=== PATIENT | female | born 1975 | race Caucasian/White ===

== ENCOUNTER 2019-01-10 20:29 | Emergency (ER) | payer BC, OTHER ==
[2019-01-10] MEDS ORDERED: Ketorolac INJ* 30 MG/ML 1 ML VIAL IV PUSH ONE (22:00)
[2019-01-10] MEDS ORDERED: Pantoprazole IV* 40 MG IV ONE (22:01)
[2019-01-10] MEDS ORDERED: Metoclopramide IV* 5 MG/ML 2 ML VIAL IV SLOW PU ONE (22:02)
[2019-01-10] MEDS ORDERED: NS 0.9% 1000 ML** 1,000 ML IV ONE (22:02)
[2019-01-10 22:26] LABS: ABS Eosinophils 0.1 10^3/ul (0-0.6); ABS Lymphocytes 1.7 10^3/ul (1.0-4.8); ABS Monocytes 0.5 10^3/ul (0-0.8); ABS Neutrophils 4.7 10^3/ul (1.5-7.7); Eosinophil % 1.5 %; Hematocrit 44 % (35-47); Hemoglobin 15.2 g/dL (12.0-16.0); Lymphocyte % 23.8 %; Mean Corpuscular HGB Conc 35 g/dL (31-36); Mean Corpuscular Hemoglobin 34 pg (27-31); Mean Corpuscular Volume 98 fL (80-97); Mean Platelet Volume 7.5 fL (7.4-10.4); Platelet Count 334 10^3/uL (150-450); Red Blood Count 4.45 10^6 /uL (3.70-4.87); Red Cell Distribution Width 14 % (10.5-15); White Blood Count 6.9 10^3/uL (3.5-10.8)
[2019-01-10 22:43] LABS: Albumin 4.9 g/dL (3.2-5.2); Albumin/Globulin Ratio 1.4 (1-3); Alkaline Phosphatase 245 U/L (34-104); Amylase 21 U/L (29-103); BUN/Creatinine Ratio 13.7 (8-20); Blood Urea Nitrogen 10 mg/dL (6-24); C Reactive Protein 9.04 mg/L (<8.01); CO2 Carbon Dioxide 25 mmol/L (22-32); Calcium 9.8 mg/dL (8.6-10.3); Chloride 100 mmol/L (101-111); EGFR African American 104.3 (>60); EGFR Non-African American 86.2 (>60); Globulin 3.4 g/dL (2-4); Glucose 133 mg/dL (70-100); Sodium 135 mmol/L (135-145); Total Protein 8.3 g/dL (6.4-8.9)
[2019-01-10 22:49] LABS: HCG Pregnancy 0.87 mIU/mL
[2019-01-10 22:52] LABS: Magnesium 1.9 mg/dL (1.9-2.7)
[2019-01-10 22:53] LABS: Anion Gap 10 mmol/L (2-11)
--- NOTE | 2019-01-10 22:55 | ED ---
Abdominal Pain/Female - HPI Summary HPI Summary: Patient is a 43 y/o F presenting to ED with complaints of upper abdominal pain since 0500 this morning, 01/10/19. Patient reports this is the third episode of such pain that she has experienced this week. She notes that she had taken Pepto -Bismol previously with relief in Sx. Today, she took Pepto-Bismol once more but did not have any relief in pain. Pain has been constant since onset. She reports radiation of pain into back and shoulders. Intermittent nausea is also endorsed. Patient claims that she cannot take narcotics. PSHx is denied. Per triage note, "Pt started on Carafate this date, has taken one dose. DX with GERD 2002. Hiatal hernia per report. Pt with hx of ETOH abuse. Pt denies cardiac hx". On triage, pain is rated 7/10. Nothing is noted to aggravate/ alleviate Sx. home medications and allergies are reviewed. - History of Current Complaint Chief Complaint: EDAbdPain Stated Complaint: ABD PAIN PER PT Time Seen by Provider: 01/10/19 21:45 Hx Obtained From: Patient Onset/Duration: Lasting Hours - onset 0500 this morning, Still Present Timing: Constant - onset 0500 this morning Severity Initially: Severe - 7/10 Severity Currently: Severe - 7/10 Pain Intensity: 7 Pain Scale Used: 0-10 Numeric - 7/10 Location: Other - upper Radiates: Yes Radiates to: Back, Other - shoulders Allergies/Adverse Reactions: Allergies Allergy/AdvReac Type Severity Reaction Status Date / Time amoxicillin [From Augmentin] Allergy Hives Verified 01/10/19 20:44 clavulanic acid Allergy Hives Verified 01/10/19 20:44 [From Augmentin] sulfamethoxazole Allergy Anaphylatic Verified 01/10/19 20:44 [From Bactrim] Shock trimethoprim [From Bactrim] Allergy Anaphylatic Verified 01/10/19 20:44 Shock Home Medications: Home Medications Acamprosate (NF) [Campral (NF)] 666 mg PO TID 01/11/19 [History Confirmed ] Escitalopram Oxalate [Lexapro] 20 mg PO DAILY 01/11/19 [History Confirmed ] Gabapentin CAP(*) 800 mg PO TID 01/11/19 [History Confirmed 01/11/19] Lamictal 150 mg PO DAILY 01/11/19 [History Confirmed 01/11/19] Pantoprazole Sodium [Protonix] 20 mg PO DAILY 01/11/19 [History Confirmed ] Sucralfate [Carafate] 1 gm PO BID 01/11/19 [History Confirmed 01/11/19] Trazodone HCl 100 mg PO BEDTIME 01/11/19 [History Confirmed 01/11/19] hydrOXYzine pamoate [Vistaril] 50 mg PO TID 01/11/19 [History Confirmed 01/11/19 ] PMH/Surg Hx/FS Hx/Imm Hx GI History: Reports: Hx Gastroesophageal Reflux Disease, Hx Hiatal Hernia Sensory History: Denies: Hx Legally Blind, Hx Deafness Opthamlomology History: Denies: Hx Legally Blind EENT History: Denies: Hx Deafness Psychiatric History: Reports: Hx Substance Abuse - alcohol abuse - Surgical History Surgery Procedure, Year, and Place: 01/10/19 - patient reports no PSHx Infectious Disease History: No Infectious Disease History: Denies: Traveled Outside the [place] in Last 30 Days - Family History Known Family History: Positive: Other - no FMHx of GERD Negative: Hypertension, Diabetes - Social History Alcohol Use: Daily Alcohol Amount: patient has been in rehab for a week Substance Use Type: Reports: None Smoking Status (MU): Former Smoker Review of Systems Negative: Fever - on vitals, temp is 98.8 F Positive: Abdominal Pain - upper , Nausea All Other Systems Reviewed And Are Negative: Yes Physical Exam - Summary Physical Exam Summary: VITAL SIGNS: Reviewed. GENERAL: Patient is a well-developed and nourished female who is lying comfortable in the stretcher. Patient is not in any acute respiratory distress. HEAD AND FACE: No signs of trauma. No ecchymosis, hematomas or skull depressions. No sinus tenderness. EYES: PERRLA, EOMI x 2, No injected conjunctiva, no nystagmus. EARS: Hearing grossly intact. Ear canals and tympanic membranes are within normal limits. MOUTH: Oropharynx within normal limits. NECK: Supple, trachea is midline, no adenopathy, no JVD, no carotid bruit, no c- spine tenderness, neck with full ROM CHEST: Symmetric, no tenderness at palpation LUNGS: Clear to auscultation bilaterally. No wheezing or crackles. CVS: Regular rate and rhythm, S1 and S2 present, no murmurs or gallops appreciated. ABDOMEN: Soft, RUQ tenderness is noted. No signs of distention. No rebound no guarding, and no masses palpated. Bowel sounds are normal. EXTREMITIES: FROM in all major joints, no edema, no cyanosis or clubbing. NEURO: Alert and oriented x 3. No acute neurological deficits. Speech is normal and follows commands. SKIN: Dry and warm Triage Information Reviewed: Yes Vital Signs On Initial Exam: Initial Vitals Temp Pulse Resp BP Pulse Ox 98.8 F 63 16 148/91 96 01/10/19 20:35 01/10/19 20:35 01/10/19 20:35 01/10/19 20:35 01/10/19 20:35 Vital Signs Reviewed: Yes Diagnostics - Vital Signs Vital Signs Temp Pulse Resp BP Pulse Ox 01/10/19 20:35 98.8 F 63 16 148/91 96 - Laboratory Lab Results: Lab Results 01/10/19 01/10/19 Range/Units 22:19 22:19 WBC 6.9 (3.5-10.8) 10^3/uL RBC 4.45 (3.70-4.87) 10^6 /uL Hgb 15.2 (12.0-16.0) g/dL Hct 44 (35-47) % MCV 98 H (80-97) fL MCH 34 H (27-31) pg MCHC 35 (31-36) g/dL RDW 14 (10.5-15) % Plt Count 334 (150-450) 10^3/uL MPV 7.5 (7.4-10.4) fL Neut % (Auto) 67.8 % Lymph % (Auto) 23.8 % [place] % (Auto) 6.7 % Eos % (Auto) 1.5 % Baso % (Auto) 0.2 % Absolute Neuts (auto) 4.7 (1.5-7.7) 10^3/ul Absolute Lymphs (auto) 1.7 (1.0-4.8) 10^3/ul Absolute Monos (auto) 0.5 (0-0.8) 10^3/ul Absolute Eos (auto) 0.1 (0-0.6) 10^3/ul Absolute Basos (auto) 0.0 (0-0.2) 10^3/ul Absolute Nucleated RBC 0.0 10^3/ul Nucleated RBC % 0.0 Sodium 135 (135-145) mmol/L Potassium Pending Chloride 100 L (101-111) mmol/L Carbon Dioxide 25 (22-32) mmol/L Anion Gap Pending BUN 10 (6-24) mg/dL Creatinine 0.73 (0.51-0.95) mg/dL Est GFR ( Amer) 104.3 (>60) Est GFR (Non-Af Amer) 86.2 (>60) BUN/Creatinine Ratio 13.7 (8-20) Glucose 133 H (70-100) mg/dL Calcium 9.8 (8.6-10.3) mg/dL Magnesium Pending Total Bilirubin 2.50 H D (0.2-1.0) mg/dL AST Pending ALT Pending Alkaline Phosphatase 245 H (34-104) U/L C-Reactive Protein 9.04 H (<8.01) mg/L Total Protein 8.3 (6.4-8.9) g/dL Albumin 4.9 (3.2-5.2) g/dL Globulin 3.4 (2-4) g/dL Albumin/Globulin Ratio 1.4 (1-3) Amylase 21 L (29-103) U/L Lipase 10 L (11.0-82.0) U/L Beta HCG, Quant Pending Result Diagrams: 01/10/19 22:19 01/10/19 22:19 Lab Statement: Any lab studies that have been ordered have been reviewed, and results considered in the medical decision making process. - Ultrasound No standard instances Ultrasound Interpretation Completed By: Radiologist Summary of Ultrasound Findings: GALLBLADDER US IMPRESSION: Distended gallbladder measuring 10.5 cm with multiple gallstones; largest one. is measuring 0.7 cm in the fundus of the gallbladder. Gallbladder debris. Gallbladder wall is thickened measuring 7.7 mm. Positive sonographic Monterroso's. sign. Findings represent acute cholecystitis. THIS REPORT WAS REVIEWED BY DR. LAM. - EKG 2056 Cardiac Rate: Bradycardia - rate of 52 BPM EKG Rhythm: Sinus Bradycardia Summary of EKG Findings: EKG showed sinus bradycardia with rate of 52 BPM, normal axis, normal interval, no ischemic changes. Re-Evaluation - Re-Evaluation First Eval Re-Evaluation Time: 00:03 Change: Improved Comment: After ED course, patient reports improvement of Sx. Results of labs and tests were discussed with patient. Surgery to be contacted. Second Eval Re-Evaluation Time: 00:20 Change: Unchanged Comment: Consults were discussed with the patient, the patient asks that she be transferred to [facility]. Transfer center to be contacted at this time. Third Eval Re-Evaluation Time: 00:36 Change: Unchanged Comment: Preliminary report given to transfer center. Abdominal Pain Fem Course/Dx - Course Course Of Treatment: Patient is a 43 y/o F presenting to ED with complaints of upper abdominal pain since 0500 this morning. Patient reports this is the third episode of such pain that she has experienced this week. She notes that she had taken Pepto-Bismol previously with relief in Sx. Today, she took Pepto-Bismol once more but did not have any relief in pain. Pain has been constant since onset. She reports radiation of pain into back and shoulders. Intermittent nausea is also endorsed. Patient claims that she cannot take narcotics. PSHx is denied. Per triage note, "Pt started on Carafate this date, has taken one dose. DX with GERD 2002. Hiatal hernia per report. Pt with hx of ETOH abuse. Pt denies cardiac hx". On physical exam, RUQ tenderness is noted. During ED course, patient was given fluids, protonix 40 mg IV ED ONCE ONE, relgan 10 mg IV SLOW PU ONCE ONE, and Toradol 15 mg IV PUSH ED ONCE ONE. Labs showed MCV 98 , MCH 34, chloride 100, glucose 133, total bilirubin 2.5, ALT 1112, alk phos 245 , CRP 9.04, amylase 21, lipase 10, Beta HCG <0.87. EKG showed sinus bradycardia with rate of 52 BPM, normal axis, normal interval, no ischemic changes. GALLBLADDER US IMPRESSION: Distended gallbladder measuring 10.5 cm with multiple gallstones; largest one. is measuring 0.7 cm in the fundus of the gallbladder. Gallbladder debris. Gallbladder wall is thickened measuring 7.7 mm. Positive sonographic Monterroso's. sign. Findings represent acute cholecystitis. After ED course, patient reports improvement of Sx. Results of labs and tests were discussed with patient. Surgery to be contacted. Patient's case was discussed with Dr. Mckeon, he asks for admission and ERCP for the patient. 0014 - Patient's case was discussed with Dr. Bal, Dr. Bal recommends GI consult before patient is admitted. 0017 - Patient's case was discussed with Dr. Au, there is not ERCP available. Therefore, the patient will be transferred. Patient requests transfer for [facility]. Patient to be given flagyl 500 mg in 100 mls @ 100 mls/hr IVPB ONCE ONE and Levaquin 500 mg IVpremix 500 mg in 100 mls @ 100 mls/hr IVPB ED ONCE ONE. 0048 - Patient's case was discussed with Dr. Sanders, Dr. Sanders, hospitalist, accepts patient, patient to be transferred to medical floor at [facility]. - Diagnoses Provider Diagnoses: Acute cholecystitis, Choledocholithiasis - Provider Notifications Discussed Care Of Patient With: Keaton Mckeon Time Discussed With Above Provider: 00:06 Instructed by Provider To: Other - Patient's case was discussed with Dr. Mckeon , he asks for admission and ERCP for the patient. 0014 - Patient's case was discussed with Dr. Bal, Dr. Bal recommends GI consult before patient is admitted. 0017 - Patient's case was discussed with Dr. Au, there is not ERCP available. Therefore, the patient will be transferred. 0048 - Patient's case was discussed with Dr. Sanders, Dr. Sanders, hospitalist, accepts patient, patient to be transferred to medical floor at [facility]. Discharge - Sign-Out/Discharge Documenting (check all that apply): Patient Departure - transfer Patient Received Moderate/Deep Sedation with Procedure: No - Discharge Plan Condition: Good Disposition: TRANS HIGHER LVL OF CARE FAC Referrals: Shruti Brown MD [Primary Care Provider] - - Billing Disposition and Condition Condition: GOOD Disposition: Trans Higher Lvl of Care Fac - Attestation Statements Document Initiated by Scribe: Yes Documenting Scribe: KENAN VILLALTA Provider For Whom Scribe is Documenting (Include Credential): SABAS LAM MD Scribe Attestation: KENAN Joyce, scribed for SABAS LAM MD on 01/11/19 at 0125. Scribe Documentation Reviewed: Yes Provider Attestation: The documentation as recorded by the scribe, KENAN VILLALTA accurately reflects the service I personally performed and the decisions made by me, SABAS LAM MD Status of Scribe Document: Viewed
[2019-01-10 23:11] LABS: ALT 1112 U/L (7-52)
[2019-01-11 00:08] LABS: INR 1.04 (0.82-1.09)
[2019-01-11] MEDS ORDERED: metroNIDAZOLE IV 500 MG/100ML* 500 MG/100 ML BAG IVPB ONE (00:26)
[2019-01-11] MEDS ORDERED: Levofloxacin 500 MG IVPREMIX(* 500 MG/100 ML BAG IVPB ONE (00:26)
[2019-01-11] MEDS ORDERED: NS 0.9% 1000 ML** 1,000 ML IV SCH (01:00)
[2019-01-11] MEDS ORDERED: Ketorolac INJ* 30 MG/ML 1 ML VIAL IV PUSH ONE (01:07)
[2019-01-11 02:09] VITALS: BP 138/81
== END 2019-01-11 02:07 | disposition short-term general hospital (02) ==
LOC: ED 20:29
DX: K80.42 Calculus of bile duct with acute cholecystitis without obstruction (principal); K21.9 Gastro-esophageal reflux disease without esophagitis; K44.9 Diaphragmatic hernia without obstruction or gangrene; Z88.3 Allergy status to other anti-infective agents; Z88.2 Allergy status to sulfonamides; Z87.891 Personal history of nicotine dependence; Z79.899 Other long term (current) drug therapy
CPT/HCPCS: 36415; 76705; 80053; 82150; 83690; 83735; 84702; 85025; 85610; 85730; 86140; 93005; 96361; 96365; 96375; 99284; J1885; J1956; J2765; J3490

== ENCOUNTER 2019-01-23 16:44 | Emergency (ER) | payer OTHER ==
[2019-01-23 21:33] LABS: ALT 49 U/L (7-52); Albumin/Globulin Ratio 1.5 (1-3); Alkaline Phosphatase 95 U/L (34-104); BUN/Creatinine Ratio 9.6 (8-20); Blood Urea Nitrogen 9 mg/dL (6-24); CO2 Carbon Dioxide 28 mmol/L (22-32); Calcium 10.8 mg/dL (8.6-10.3); Chloride 103 mmol/L (101-111); EGFR African American 77.9 (>60); EGFR Non-African American 64.4 (>60); Globulin 3.3 g/dL (2-4); Glucose 93 mg/dL (70-100); Hematocrit 43 % (35-47); Hemoglobin 14.7 g/dL (12.0-16.0); Mean Corpuscular HGB Conc 34 g/dL (31-36); Mean Corpuscular Hemoglobin 34 pg (27-31); Mean Corpuscular Volume 99 fL (80-97); Red Cell Distribution Width 14 % (10.5-15); Sodium 139 mmol/L (135-145); Total Protein 8.3 g/dL (6.4-8.9); White Blood Count 8.4 10^3/uL (3.5-10.8)
[2019-01-23 21:34] LABS: Anion Gap 8 mmol/L (2-11)
[2019-01-23 21:48] LABS: ABS Eosinophils 0.4 10^3/ul (0-0.6); ABS Lymphocytes 4.3 10^3/ul (1.0-4.8); ABS Monocytes 0.5 10^3/ul (0-0.8); ABS Neutrophils 3.2 10^3/ul (1.5-7.7); Eosinophil % 4.8 %; Lymphocyte % 50.7 %; Mean Platelet Volume 7.7 fL (7.4-10.4); Nucleated Red Blood Cells % 0.2; Platelet Count 447 10^3/uL (150-450)
[2019-01-23 21:48] LABS: Urine Appearance Clear; Urine Bilirubin Negative (Negative); Urine Blood Negative (Negative); Urine Color Yellow; Urine Glucose Negative (Negative); Urine Ketones Negative (Negative); Urine Nitrite Negative (Negative); Urine Protein Negative (Negative); Urine Specific Gravity 1.011 (1.010-1.030); Urine Urobilinogen Negative (Negative)
[2019-01-23 22:48] VITALS: BP 116/79
[2019-01-23] MEDS ORDERED: Ibuprofen TAB* 600 MG PO ONE (23:02)
--- NOTE | 2019-01-24 04:11 | ED ---
Abdominal Pain/Female - HPI Summary HPI Summary: Patient is a 43 y/o F presenting to ED with complaints of abdominal pain, N/V. She notes that she had a cholecystectomy last week. Patient states that she was discharged the day after her surgery and had been doing well. This morning, patient had sudden onset of nausea, vomiting, and then began to experienced abdominal pain. Abdominal pain has been constant since onset and is described as sharp. She denies any nausea since vomiting. Fatigue and decreased appetite are endorsed as well. Patient took motrin at 0800 01/23/19. Patient is currently in [facility] for alcohol rehab, cholecystectomy was done at [facility]. On triage, pain is rated 10/10, nothing is noted to aggravate/alleviate Sx. Home medications and allergies are reviewed. - History of Current Complaint Chief Complaint: EDAbdPain Stated Complaint: GALLBLADDER OUT 1WEEK AGO, PAIN PER PT Time Seen by Provider: 01/23/19 21:35 Hx Obtained From: Patient Onset/Duration: Lasting Hours, Still Present Timing: Hours Severity Currently: Severe Pain Intensity: 10 Pain Scale Used: 0-10 Numeric Character: Sharp Aggravating Factor(s): Nothing Alleviating Factor(s): Nothing Associated Signs and Symptoms: Positive: Decreased Appetite, Nausea, Vomiting, Other: - fatigue Allergies/Adverse Reactions: Allergies Allergy/AdvReac Type Severity Reaction Status Date / Time amoxicillin [From Augmentin] Allergy Hives Verified 01/23/19 16:55 clavulanic acid Allergy Hives Verified 01/23/19 16:55 [From Augmentin] sulfamethoxazole Allergy Anaphylatic Verified 01/23/19 16:55 [From Bactrim] Shock trimethoprim [From Bactrim] Allergy Anaphylatic Verified 01/23/19 16:55 Shock Home Medications: Home Medications ARIPiprazole [Abilify] 5 mg PO DAILY 01/23/19 [History Confirmed 01/23/19] Bifidobacterium Infantis [Align] 4 mg PO DAILY 01/23/19 [History Confirmed 01/23] Folic Acid TAB* [Folvite TAB*] 1 mg PO DAILY 01/23/19 [History Confirmed ] Multivitamin [Multivitamins] 1 tab PO DAILY 01/23/19 [History Confirmed 01/23/19 ] Nicotine [Nicotine Patch] 1 patch TRANSDERM DAILY 01/23/19 [History Confirmed ] Omeprazole 40 mg PO DAILY 01/23/19 [History Confirmed 01/23/19] Thiamine TAB* [Vitamin B-1 TAB 100 MG*] 100 mg PO DAILY 01/23/19 [History Confirmed 01/23/19] lamoTRIgine [Lamotrigine] 150 mg PO DAILY 01/23/19 [History Confirmed 01/23/19] PMH/Surg Hx/FS Hx/Imm Hx GI History: Reports: Hx Gastroesophageal Reflux Disease, Hx Hiatal Hernia Sensory History: Denies: Hx Legally Blind, Hx Deafness Opthamlomology History: Denies: Hx Legally Blind EENT History: Denies: Hx Deafness Psychiatric History: Reports: Hx Substance Abuse - alcohol abuse - Surgical History Surgery Procedure, Year, and Place: cholecystectomy Infectious Disease History: No Infectious Disease History: Denies: Traveled Outside the [place] in Last 30 Days - Family History Known Family History: Positive: Other - no FMHx of GERD Negative: Hypertension, Diabetes - Social History Alcohol Use: rehab Alcohol Amount: As of today pt has been clean for 49 days Substance Use Type: Reports: None Smoking Status (MU): Former Smoker Review of Systems Positive: Fatigue Gastrointestinal: Other - POSITIVE - DECREASED APPETITE Positive: Abdominal Pain, Vomiting, Nausea All Other Systems Reviewed And Are Negative: Yes Physical Exam - Summary Physical Exam Summary: Appearance: Well-appearing, Well-nourished, lying in bed comfortably Skin: Warm, dry, no obvious rash Eyes: sclera anicteric, no conjunctival pallor ENT: mucous membranes moist, pharynx appears normal Neck: Supple, nontender Respiratory: Clear to auscultation, no signs of respiratory distress Cardiovascular: Normal S1, S2. No murmurs. Normal distal pulses in tibial and radial bilaterally. Abdomen: Soft, RUQ tenderness with no peritoneal signs surgical scars healing well, normal active bowel sounds present Musculoskeletal: Normal, Strength/ROM Intact Neurological: A&Ox3, awake and alert, mentation is normal, speech is fluent and appropriate Psychiatric: affect is normal, does not appear anxious or depressed Triage Information Reviewed: Yes Vital Signs On Initial Exam: Initial Vitals Temp Pulse Resp BP Pulse Ox 98.4 F 80 19 141/91 99 01/23/19 16:52 01/23/19 16:52 01/23/19 16:52 01/23/19 16:52 01/23/19 16:52 Vital Signs Reviewed: Yes Diagnostics - Vital Signs Vital Signs Temp Pulse Resp BP Pulse Ox 01/23/19 23:10 97.8 F 64 18 116/79 95 01/23/19 22:38 64 116/79 94 01/23/19 22:08 62 122/80 95 01/23/19 22:00 68 95 01/23/19 21:39 66 145/81 98 01/23/19 21:37 69 97 01/23/19 18:55 98.4 F 79 20 147/81 98 01/23/19 16:52 98.4 F 80 19 141/91 99 - Laboratory Lab Results: Lab Results 01/23/19 01/23/19 01/23/19 Range/Units 21:06 21:06 21:06 WBC 8.4 (3.5-10.8) 10^3/uL RBC 4.30 (3.70-4.87) 10^6 /uL Hgb 14.7 (12.0-16.0) g/dL Hct 43 (35-47) % MCV 99 H (80-97) fL MCH 34 H (27-31) pg MCHC 34 (31-36) g/dL RDW 14 (10.5-15) % Plt Count 447 (150-450) 10^3/uL MPV 7.7 (7.4-10.4) fL Neut % (Auto) 37.5 % Lymph % (Auto) 50.7 % [place] % (Auto) 6.5 % Eos % (Auto) 4.8 % Baso % (Auto) 0.5 % Absolute Neuts (auto) 3.2 (1.5-7.7) 10^3/ul Absolute Lymphs (auto) 4.3 (1.0-4.8) 10^3/ul Absolute Monos (auto) 0.5 (0-0.8) 10^3/ul Absolute Eos (auto) 0.4 (0-0.6) 10^3/ul Absolute Basos (auto) 0.0 (0-0.2) 10^3/ul Absolute Nucleated RBC 0.0 10^3/ul Nucleated RBC % 0.2 Sodium 139 (135-145) mmol/L Potassium TNP Chloride 103 (101-111) mmol/L Carbon Dioxide 28 (22-32) mmol/L Anion Gap 8 (2-11) mmol/L BUN 9 (6-24) mg/dL Creatinine 0.94 (0.51-0.95) mg/dL Est GFR ( Amer) 77.9 (>60) Est GFR (Non-Af Amer) 64.4 (>60) BUN/Creatinine Ratio 9.6 (8-20) Glucose 93 (70-100) mg/dL Lactic Acid 0.3 L (0.5-2.0) mmol/L Calcium 10.8 H (8.6-10.3) mg/dL Total Bilirubin 0.90 (0.2-1.0) mg/dL AST TNP ALT 49 (7-52) U/L Alkaline Phosphatase 95 (34-104) U/L Total Protein 8.3 (6.4-8.9) g/dL Albumin 5.0 (3.2-5.2) g/dL Globulin 3.3 (2-4) g/dL Albumin/Globulin Ratio 1.5 (1-3) Lipase 15 (11.0-82.0) U/L Urine Color Urine Appearance Urine pH (5-9) Ur Specific [place] (1.010-1.030) Urine Protein (Negative) Urine Ketones (Negative) Urine Blood (Negative) Urine Nitrate (Negative) Urine Bilirubin (Negative) Urine Urobilinogen (Negative) Ur Leukocyte Esterase (Negative) Urine Glucose (Negative) 01/23/19 Range/Units 21:39 WBC (3.5-10.8) 10^3/uL RBC (3.70-4.87) 10^6 /uL Hgb (12.0-16.0) g/dL Hct (35-47) % MCV (80-97) fL MCH (27-31) pg MCHC (31-36) g/dL RDW (10.5-15) % Plt Count (150-450) 10^3/uL MPV (7.4-10.4) fL Neut % (Auto) % Lymph % (Auto) % [place] % (Auto) % Eos % (Auto) % Baso % (Auto) % Absolute Neuts (auto) (1.5-7.7) 10^3/ul Absolute Lymphs (auto) (1.0-4.8) 10^3/ul Absolute Monos (auto) (0-0.8) 10^3/ul Absolute Eos (auto) (0-0.6) 10^3/ul Absolute Basos (auto) (0-0.2) 10^3/ul Absolute Nucleated RBC 10^3/ul Nucleated RBC % Sodium (135-145) mmol/L Potassium Chloride (101-111) mmol/L Carbon Dioxide (22-32) mmol/L Anion Gap (2-11) mmol/L BUN (6-24) mg/dL Creatinine (0.51-0.95) mg/dL Est GFR ( Amer) (>60) Est GFR (Non-Af Amer) (>60) BUN/Creatinine Ratio (8-20) Glucose (70-100) mg/dL Lactic Acid (0.5-2.0) mmol/L Calcium (8.6-10.3) mg/dL Total Bilirubin (0.2-1.0) mg/dL AST ALT (7-52) U/L Alkaline Phosphatase (34-104) U/L Total Protein (6.4-8.9) g/dL Albumin (3.2-5.2) g/dL Globulin (2-4) g/dL Albumin/Globulin Ratio (1-3) Lipase (11.0-82.0) U/L Urine Color Yellow Urine Appearance Clear Urine pH 5.0 (5-9) Ur Specific [place] 1.011 (1.010-1.030) Urine Protein Negative (Negative) Urine Ketones Negative (Negative) Urine Blood Negative (Negative) Urine Nitrate Negative (Negative) Urine Bilirubin Negative (Negative) Urine Urobilinogen Negative (Negative) Ur Leukocyte Esterase Negative (Negative) Urine Glucose Negative (Negative) Result Diagrams: 01/23/19 21:06 01/23/19 21:06 Lab Statement: Any lab studies that have been ordered have been reviewed, and results considered in the medical decision making process. - Ultrasound No standard instances Ultrasound Interpretation Completed By: Radiologist Summary of Ultrasound Findings: ABDOMEN US IMPRESSION: 1. There is a 6 mm calculus in the inferior pole the right kidney without. hydronephrosis. 2. There is absence of the gallbladder consistent with cholecystectomy with. minimal free fluid in the gallbladder fossa. THIS REPORT WAS REVIEWED BY DR. PAIZ. Re-Evaluation - Re-Evaluation First Eval Re-Evaluation Time: 22:38 Comment: Results of labs and tests discussed, patient is agreeable with discharge to home. Abdominal Pain Fem Course/Dx - Course Course Of Treatment: Patient is a 43 y/o F presenting to ED with complaints of abdominal pain, N/V. She notes that she had a cholecystectomy last week. Patient states that she was discharged the day after her surgery and had been doing well. This morning, patient had sudden onset of nausea, vomiting, and then began to experienced abdominal pain. Abdominal pain has been constant since onset and is described as sharp. She denies any nausea since vomiting. Fatigue and decreased appetite are endorsed as well. Patient took motrin at 0800 01/23/19. Patient is currently in [facility] for alcohol rehab, cholecystectomy was done at [facility]. On physical exam, RUQ tenderness with no peritoneal signs surgical scars healing well, normal active bowel sounds present. Labs showed lipase 15, ALT 49, alk phos 96, calcium 10.8, lactic acid 0.3. UA was negative. During ED course, patient received motrin 600 mg PO. ABDOMEN US IMPRESSION: 1. There is a 6 mm calculus in the inferior pole the right kidney without. hydronephrosis. 2. There is absence of the gallbladder consistent with cholecystectomy with. minimal free fluid in the gallbladder fossa. Results of labs and tests discussed, patient is agreeable with discharge to home. - Diagnoses Provider Diagnoses: Abdominal pain Discharge - Sign-Out/Discharge Documenting (check all that apply): Patient Departure - discharge Patient Received Moderate/Deep Sedation with Procedure: No - Discharge Plan Condition: Good Disposition: HOME Patient Education Materials: Acute Abdominal Pain (ED) Referrals: Shruti Brown MD [Primary Care Provider] - Additional Instructions: The tests we did tonight did not show any sign of a significant problem workup patient related to your surgery. At this point I believe it is safe for you to go home and rest and take Motrin for the pain. I would ask that you call your surgeon in the morning to let him know what is happening with you as he may want to see you sooner than later this month if you continue to have pain. Certainly if her pain worsens significant family or you develop new symptoms such as vomiting or fever, we can see you back here sooner as well. - Billing Disposition and Condition Condition: GOOD Disposition: Home - Attestation Statements Document Initiated by Rafa: Yes Documenting Scribe: KENAN VILLALTA Provider For Whom Rafa is Documenting (Include Credential): SARAI PAIZ MD Scribe Attestation: I, KENAN VILLALAT, scribed for SARAI PAIZ MD on 01/24/19 at 0421. Scribe Documentation Reviewed: Yes Provider Attestation: The documentation as recorded by the KENAN dhillon accurately reflects the service I personally performed and the decisions made by me, SARAI PAIZ MD Status of Scribe Document: Viewed
== END 2019-01-23 23:12 | disposition home or self-care (01) ==
LOC: ED 16:44
DX: R10.11 Right upper quadrant pain (principal); R11.2 Nausea with vomiting, unspecified; R53.83 Other fatigue; N20.0 Calculus of kidney; K21.9 Gastro-esophageal reflux disease without esophagitis; Z90.49 Acquired absence of other specified parts of digestive tract; Z88.1 Allergy status to other antibiotic agents; Z88.0 Allergy status to penicillin; Z88.2 Allergy status to sulfonamides; Z87.891 Personal history of nicotine dependence
CPT/HCPCS: 36415; 76705; 80053; 81003; 83605; 83690; 85025; 99283; A9270-GY

== ENCOUNTER 2019-03-02 13:15 | Observation (INO) | payer OTHER ==
--- NOTE | 2019-03-02 13:33 | ED ---
Syncope/Near Syncope - HPI Summary HPI Summary: This patient is a 43 year old female presenting to [facility] with a chief complaint of syncope since this past week. The patient states she has had 3 episodes over the past week with the latest one just [employer]. The patient states she feels completely fine, then passes out and wakes up and continues to feel completely fine. She states she currently has a headache. This time she states she was headed to toward the stairs when she fell. She states she does not believe she has hit her head and that two of her three falls were witnessed. The headache did not start until well after the latest episode. She states they are tension headaches. She also reports soreness in her right elbow and shoulder, she states she thinks she threw her arm out. - History Of Current Complaint Time Seen by Provider: 03/02/19 13:23 Hx Obtained From: Patient Context: Unwitnessed, Witnessed Alleviating Factor(s): Spontaneous Resolution Associated Signs And Symptoms: Headache - Allergies/Home Medications Allergies/Adverse Reactions: Allergies Allergy/AdvReac Type Severity Reaction Status Date / Time amoxicillin [From Augmentin] Allergy Hives Verified 01/23/19 16:55 clavulanic acid Allergy Hives Verified 01/23/19 16:55 [From Augmentin] sulfamethoxazole Allergy Anaphylatic Verified 01/23/19 16:55 [From Bactrim] Shock trimethoprim [From Bactrim] Allergy Anaphylatic Verified 01/23/19 16:55 Shock Home Medications: Home Medications Acetaminophen TAB* [Tylenol TAB*] 1 - 2 tab PO Q6H PRN 03/02/19 [History Confirmed 03/02/19] Aspirin TAB* [Aspirin 325 MG TAB*] 325 mg PO SEE INSTRUCTIONS PRN 03/02/19 [ History Confirmed 03/02/19] Bismuth Subsalicylate [[place] Bismuth] 2 tab PO Q30M PRN 03/02/19 [History Confirmed 03/02/19] Docusate CAP* [Colace Cap*] 100 mg PO BID PRN 03/02/19 [History Confirmed ] Gabapentin CAP(*) [Neurontin 100 mg CAP(*)] 100 mg PO TID PRN 03/02/19 [History Confirmed 03/02/19] Magnesium Hydroxide LIQ* [Milk of Magnesia LIQ*] 30 ml PO DAILY PRN 03/02/19 [ History Confirmed 03/02/19] Melatonin 10 mg PO BEDTIME PRN 03/02/19 [History Confirmed 03/02/19] Nicotine GUM* 4MG FRUIT FLAVOR [Nicotine GUM*] 4 each PO BID 03/02/19 [History Confirmed 03/02/19] Nicotine PATCH 14 MG/24 HR* 1 patch TRANSDERM DAILY 03/02/19 [History Confirmed 03/02/19] Polyethylene Glycol 3350* [Miralax*] 17 gm PO DAILY PRN 03/02/19 [History Confirmed 03/02/19] guaiFENesin ER TAB [Mucinex*] 1,200 mg PO Q12H PRN 03/02/19 [History Confirmed 03/02/19] hydrOXYzine HCL TAB* [Atarax TAB 50 MG *] 50 mg PO TID PRN 03/02/19 [History Confirmed 03/02/19] PMH/Surg Hx/FS Hx/Imm Hx GI History: Reports: Hx Gastroesophageal Reflux Disease, Hx Hiatal Hernia Sensory History: Denies: Hx Legally Blind, Hx Deafness Opthamlomology History: Denies: Hx Legally Blind Psychiatric History: Reports: Hx Substance Abuse - alcohol abuse - Surgical History Surgery Procedure, Year, and Place: cholecystectomy - Family History Known Family History: Positive: Other - no FMHx of GERD Negative: Hypertension, Diabetes - Social History Alcohol Use: rehab Alcohol Amount: As of today pt has been clean for 49 days Substance Use Type: Reports: None Smoking Status (MU): Former Smoker Review of Systems Negative: Fever Positive: Other - Rigth shoulder/elbow soreness Positive: Headache, Syncope All Other Systems Reviewed And Are Negative: Yes Physical Exam - Summary Physical Exam Summary: Appearance: The patient is well-nourished in no acute distress and in no acute pain. Skin: The skin is warm and dry and skin color reflects adequate perfusion. HEENT: The head is normocephalic and atraumatic. The pupils are equal and reactive. The conjunctivae are clear and without drainage. Nares are patent and without drainage. Mouth reveals moist mucous membranes and the throat is without erythema and exudate. The external ears are intact. The ear canals are patent and without drainage. The tympanic membranes are intact. Neck: The neck is supple with full range of motion and non-tender. There are no carotid bruits. There is no neck vein distension. Mild pericervical tenderness. Respiratory: Chest is non-tender. Lungs are clear to auscultation and breath sounds are symmetrical and equal. Cardiovascular: Heart is regular rate and rhythm. There is no murmur or rub auscultated. There is no peripheral edema and pulses are symmetrical and equal. Abdomen: The abdomen is soft and non-tender. There are normal bowel sounds heard in all four quadrants and there is no organomegaly palpated. Musculoskeletal: There is no back tenderness noted. Extremities are non-tender with full range of motion. There is good capillary refill. There is no peripheral edema or calf tenderness elicited. Neurological: Patient is alert and oriented to person, place and time. The patient has symmetrical motor strength in all four extremities. Cranial nerves are grossly intact. Deep tendon reflexes are symmetrical and equal in all four extremities. Psychiatric: The patient has an appropriate affect and does not exhibit any anxiety or depression. Triage Information Reviewed: Yes Vital Signs On Initial Exam: Temp Pulse Resp BP Pulse Ox 98.1 F 83 18 107/65 96 03/02/19 13:27 03/02/19 13:27 03/02/19 13:27 03/02/19 13:27 03/02/19 13:27 Vital Signs Reviewed: Yes Diagnostics - Laboratory Result Diagrams: 03/02/19 14:00 03/02/19 14:00 Lab Statement: Any lab studies that have been ordered have been reviewed, and results considered in the medical decision making process. - EKG 1350 Cardiac Rate: NL EKG Rhythm: Sinus Rhythm - 71 BPM Summary of EKG Findings: Normal sinus rhythm, normal ST, no ectopy, no STEMI Course/Dx Course Of Treatment: Ms. Greer has worrisomely had 3 episodes of sudden unexpected syncope without prequel over the last couple of days. She was nontoxic in appearance with stable vital signs here. She is placed on a monitor while labs were obtained including troponin. EKG and chest x-ray also obtained and within normal limits. I spoke with the hospitalist about observing her on the monitor given the 3 episodes. - Diagnoses Provider Diagnoses: Syncope - Physician Notifications Discussed Care of Patient With: Mehran Melendez - Hospitalist Time Discussed With Above Provider: 15:54 Instructed by Provider To: Admit As Inpatient Discharge - Sign-Out/Discharge Documenting (check all that apply): Patient Departure - Admission - Discharge Plan Condition: Stable Disposition: ADMITTED TO [facility] - Billing Disposition and Condition Condition: STABLE Disposition: Admitted to [facility] - Attestation Statements Document Initiated by Rafa: Yes Documenting Scribe: Alok Alvarado Provider For Whom Rafa is Documenting (Include Credential): Maxim Pinzon MD Scribjai Attestation: Alok Joyce scribed for Maxim Pinzon MD on 03/02/19 at 2122. Scribe Documentation Reviewed: Yes Provider Attestation: The documentation as recorded by the Alok dhillon accurately reflects the service I personally performed and the decisions made by me, Maixm Pinzon MD Status of Scribe Document: Viewed
[2019-03-02] MEDS ORDERED: Ketorolac INJ* 30 MG/ML 1 ML VIAL IV PUSH ONE (13:42)
[2019-03-02] MEDS ORDERED: NS 0.9% 1000 ML** 1,000 ML IV ONE (13:42)
[2019-03-02 14:14] LABS: INR 0.95 (0.82-1.09)
[2019-03-02 14:18] LABS: ABS Basophils 0.1 10^3/ul (0-0.2); ABS Eosinophils 0.6 10^3/ul (0-0.6); ABS Lymphocytes 3.1 10^3/ul (1.0-4.8); ABS Monocytes 0.5 10^3/ul (0-0.8); ABS Neutrophils 4.3 10^3/ul (1.5-7.7); Hematocrit 41 % (35-47); Hemoglobin 13.8 g/dL (12.0-16.0); Lymphocyte % 35.6 %; Mean Corpuscular HGB Conc 34 g/dL (31-36); Mean Corpuscular Hemoglobin 32 pg (27-31); Mean Corpuscular Volume 95 fL (80-97); Mean Platelet Volume 7.3 fL (7.4-10.4); Nucleated Red Blood Cells % 0.1; Platelet Count 328 10^3/uL (150-450); Red Blood Count 4.32 10^6 /uL (3.70-4.87); Red Cell Distribution Width 14 % (10-15); White Blood Count 8.6 10^3/uL (3.5-10.8)
[2019-03-02 14:26] LABS: Albumin 4.8 g/dL (3.2-5.2); Albumin/Globulin Ratio 1.5 (1-3); BUN/Creatinine Ratio 14.5 (8-20); Calcium 10.1 mg/dL (8.6-10.3); EGFR Non-African American 74.3 (>60); Globulin 3.2 g/dL (2-4); Magnesium 1.9 mg/dL (1.9-2.7); Potassium 4.6 mmol/L (3.5-5.0); Total Bilirubin 0.4 mg/dL (0.2-1.0)
[2019-03-02] MEDS ORDERED: Ketorolac INJ* 30 MG/ML 1 ML VIAL IM ONE (14:44)
[2019-03-02 15:20] LABS: TSH (Thyroid Stimulating Horm) 1.12 mcIU/mL (0.34-5.60)
[2019-03-02 15:22] LABS: Urine Appearance Clear; Urine Bilirubin Negative (Negative); Urine Blood Negative (Negative); Urine Color Yellow; Urine Glucose Negative (Negative); Urine Ketones Negative (Negative); Urine Nitrite Negative (Negative); Urine Protein Negative (Negative); Urine Specific Gravity 1.004 (1.010-1.030); Urine Urobilinogen Negative (Negative)
[2019-03-02] MEDS ORDERED: Acetaminophen TAB* 325 MG PO PRN (17:08)
[2019-03-02] MEDS ORDERED: Melatonin 3 MG TAB PO PRN (18:30)
--- NOTE | 2019-03-02 19:10 | HP ---
CC: Dr. Shruti rBown * HISTORY AND PHYSICAL: DATE OF ADMISSION: 03/02/19 PRIMARY CARE PHYSICIAN: Dr. Shruti Brown. ATTENDING PHYSICIAN: Dr. Mehran Melendez * (dictated by Estela France NP) . CHIEF COMPLAINT: Syncope. HISTORY OF PRESENT ILLNESS: Ms. Greer is a 43-year-old female with past medical history significant for GERD, hiatal hernia, mitral valve prolapse diagnosed when she was and alcoholism, who is currently inpatient resident at the [facility]. She reports that she has been in her usual state of health and has been sober for 49 days. She states that on Monday after getting up, she had an episode of getting up and brushing her teeth, that while brushing her teeth standing at the sink, she had an episode of syncope. At that time, they felt that it was likely vagal response and they had her increase her fluid intake. She had another episode during the week that one and she had also just recently gotten up. Today, while ambulating down the hallway, she passed out. She denies any auras or any lightheadedness, dizziness prior. She states that she feels fine before the episode and wakes up feeling fine after the episode. She states she did have a history of syncope when she was younger and anorexic. She denies any anorexia at this time. She denies any recent cold symptoms, fevers, chills, chest pain, cough, shortness of breath, nausea, vomiting, diarrhea, abdominal pain. She denies any upper respiratory infection symptoms such as postnasal drip, nasal congestion. She reports some orthostatic hypotension at baseline, but states that this usually does not cause her to pass out. She reports a good appetite, and has been eating and drinking well this week. After today's fall, she reports a headache that is on the top of her head and in the occipital area. She feels that this is a tension headache. She normally has tension headaches and this is very similar to her typical headaches. Due to her repeat syncopal episode, EMS was called and she was brought to the emergency room for further evaluation. While in the emergency room, she received Toradol, a liter of normal saline. She was complaining of right elbow and shoulder pain in addition to the headache and after she received the Toradol, the right elbow and shoulder pain resolved. Her headache was a 3/10. She had labs that were unremarkable. Urinalysis was unremarkable. EKG showing a sinus rhythm and no acute signs of ischemia. Negative troponin. TSH 1.12. She states that all of her falls have been witnessed, so there was no signs of seizure activity that she is aware of. She was referred to the hospitalist service for possible admission. PAST MEDICAL HISTORY: 1. GERD. 2. Hiatal hernia. 3. Mitral valve prolapse, diagnosed when she was in 1998. 4. Alcoholism. PAST SURGICAL HISTORY: 1. Status post cholecystectomy. 2. Status post left parotidectomy. 3. Status post tonsillectomy. HOME MEDICATIONS: Include: 1. Lamotrigine 150 mg by mouth daily. 2. Trazodone 100 mg by mouth daily. 3. Thiamine 100 mg by mouth daily. 4. Pantoprazole 40 mg by mouth daily. 5. Nicotine patch 14 mg transdermal daily. 6. Multivitamin 1 tablet by mouth daily. 7. Gabapentin 800 mg by mouth 3 times daily. 8. Folic acid 1 mg by mouth daily. 9. Lexapro 20 mg by mouth daily. 10. Align 4 mg by mouth daily. 11. Campral 666 mg by mouth 3 times daily. 12. Abilify 5 mg by mouth daily. 13. Hydroxyzine 50 mg by mouth as needed, typically takes 1 in the morning and 1 at night. 14. Gabapentin 100 mg by mouth 4 times daily as needed. 15. Acetaminophen 500 mg by mouth as needed for fever or pain. ALLERGIES: AUGMENTIN caused hives, BACTRIM caused anaphylactic shock. FAMILY HISTORY: Denies family history of coronary artery disease, diabetes. Mother with a history of CLL. Father with a history of prostate cancer. SOCIAL HISTORY: The patient is a former smoker. She reports quitting smoking this last time in January 2019. Prior to that, she had smoked on and off for many years, anywhere from a half to one and a half packs per day. The longest period of time that she smoked straight was 15 years. She is a former alcoholic , currently in rehab. She has been sober for 49 days. She has been a heavy drinker from 2013 until she went into rehab. She denies recreational drug use. She previously worked as a registered nurse, is currently unemployed. Her friend, Rubia Pascual, will be her surrogate decision maker in the event she is unable to make decisions for herself. REVIEW OF SYSTEMS: I performed a 14-point review of systems. All the pertinent positives and negatives are mentioned in the history of present illness. Remaining review of systems is negative. PHYSICAL EXAMINATION GENERAL APPEARANCE: Alert, pleasant, appears to be in no acute distress. VITAL SIGNS: Temperature 98.1, heart rate 67, respiratory rate 18, O2 sat 98% on room air, blood pressure 110/71. HEENT: Head: Normocephalic, atraumatic. Pupils equal and reactive to light. Extraocular movements are intact. Conjunctivae are clear. There is no subconjunctival hemorrhage. She has moist mucous membranes. NECK: Supple. There is no lymphadenopathy noted. RESPIRATORY: No accessory muscle use. The lungs are clear to auscultation bilateral. CARDIOVASCULAR: Regular rate and rhythm. S1, S2 present. No murmurs, rubs, or gallops heard. ABDOMEN: Bowel sounds present x4. Abdomen is soft, large, nontender. EXTREMITIES: No lower extremity edema. DP and PT pulses are 2+ and symmetric. MUSCULOSKELETAL: No clubbing or cyanosis noted. The patient exhibits good strength in all extremities. NEUROLOGIC: Alert and oriented x4. Cranial nerves II through XII are grossly intact. Her hand flow coordinator are equal. There is a strong dorsi and plantarflexion bilateral. Able to do straight leg raises bilateral. PSYCHOLOGIC: Calm and cooperative. SKIN: No rashes or abnormalities seen. DIAGNOSTIC STUDIES/LAB DATA: Sodium 139, potassium 4.6, chloride 104, CO2 of 27, BUN 12, creatinine 0.83, glucose 88. White blood cell count 8.6, hemoglobin 13.8, hematocrit 41, platelet count 328. Urinalysis unremarkable. Specific gravity is 1.004. Troponin 0.00. TSH 1.12. EKG shows a sinus rhythm, rate of 71. There are no acute signs of ischemia. This EKG is similar to previous EKG from 01/10/19. IMPRESSION: Ms. Greer is a 43-year-old female with past medical history significant for gastroesophageal reflux disease, hiatal hernia, mitral valve prolapse and alcoholism, who presented to the emergency room after a syncopal event. She will be admitted under observation for workup of her syncope. ASSESSMENT/PLAN: 1. Syncope. Unclear cause at this time. Suspect may be secondary to orthostatic hypotension. We will check orthostatic vitals. Additionally in the setting of her history of a mitral valve prolapse, will get an echocardiogram tomorrow to evaluate her valves and monitor her on telemetry. Will trend her troponins x3. The initial troponin is 0.00. If she is in fact orthostatic, will give her some more IV fluids. 2. Gastroesophageal reflux disease. The patient will be continued on her home pantoprazole. 3. History of alcohol abuse. The patient is currently in inpatient rehab. She is 49 days sober and we are going to continue her gabapentin, multivitamin, thiamine, folic acid, and Campral. 4. Depression. She will be continued on her home Lexapro, lamotrigine, Abilify. 5. Fluids, electrolytes, and nutrition. Low fat diet. 6. Code status. Full code. 7. DVT prophylaxis. She is moderate risk, will have subcu heparin. 8. Disposition. Observation. TIME SPENT: Time for this admission was approximately 50 minutes, greater than half of that was spent with the patient discussing medications, past medical history, the events leading to arrival, performing physical examination. The case has been reviewed with the attending, Dr. Melendez, who agrees with the plan of care. JAE ARIAS [id number]/[facility] #: [id number] SHUKRI
[2019-03-02] MEDS: ACAMPROSATE 333 MG PO SCH (20:20)
[2019-03-02] MEDS: Gabapentin CAP(*) 400 MG PO SCH (20:22)
[2019-03-02] MEDS: Heparin VIAL(*) 5000 UNITS/ML VIAL (FIVE THOUSAND) SUBCUT SCH (20:36)
[2019-03-02] MEDS: Nicotine* 2MG (FRUIT FLAVOR) GUM PO PRN (20:37)
[2019-03-02] MEDS ORDERED: traZODone TAB* 100 MG PO SCH (21:00)
[2019-03-03] MEDS: Heparin VIAL(*) 5000 UNITS/ML VIAL (FIVE THOUSAND) SUBCUT SCH ×2 (05:47→14:25)
[2019-03-03] MEDS: Gabapentin CAP(*) 400 MG PO SCH ×2 (08:53→14:26)
[2019-03-03] MEDS: Nicotine* 2MG (FRUIT FLAVOR) GUM PO PRN ×4 (08:54→16:49)
[2019-03-03] MEDS: ACAMPROSATE 333 MG PO SCH ×2 (08:57→14:25)
[2019-03-03] MEDS ORDERED: BIFIDOBACTERIUM INFANTIS 4 MG PO SCH (09:00)
[2019-03-03] MEDS ORDERED: lamoTRIgine TAB(*) 100 MG PO SCH (09:00)
[2019-03-03] MEDS ORDERED: Nicotine PATCH 14 MG/24 HR* PATCH TRANSDERM SCH (09:00)
[2019-03-03] MEDS ORDERED: Folic Acid TAB* 1 MG PO SCH (09:00)
[2019-03-03] MEDS ORDERED: Multivitamins/Minerals TAB PO SCH (09:00)
[2019-03-03] MEDS ORDERED: ARIPiprazole TAB* 5 MG PO SCH (09:00)
[2019-03-03] MEDS ORDERED: Escitalopram * 20 MG TABLET PO SCH (09:00)
[2019-03-03] MEDS ORDERED: Thiamine TAB* 100 MG TAB PO SCH (09:00)
[2019-03-03] MEDS ORDERED: Pantoprazole TAB * 40 MG TAB PO SCH (09:00)
[2019-03-03 12:05] VITALS: BP 106/68
--- NOTE | 2019-03-03 15:42 | DS ---
CC: Dr. Brown * DISCHARGE SUMMARY: DATE OF ADMISSION: 03/02/19 DATE OF DISCHARGE: 03/03/19 PRIMARY CARE PROVIDER: Dr. Shruti Brown, [place], [place]. DISPOSITION AT DISCHARGE: The patient is being discharged to [facility], [facility] and drug [facility] [place], from where she is planning to go home likely today, later on. CONDITION AT DISCHARGE: Stable. DISCHARGE DIAGNOSIS: Recurrent syncope. SECONDARY DIAGNOSES: 1. History of gastroesophageal reflux disease. 2. History of hiatal hernia. 3. History of mitral valve prolapse. 4. History of alcoholism. MEDICATIONS AT DISCHARGE: Are unchanged from admission and include: 1. Campral 666 mg t.i.d. 2. Acetaminophen on a p.r.n. basis. 3. Abilify 5 mg daily. 4. Aspirin 325 mg daily. 5. Align 4 mg daily. 6. Bismuth subsalicylate 2 tabs every 30 minutes p.r.n. GI symptoms. 7. Colace 100 mg b.i.d. p.r.n. 8. Lexapro 20 mg daily. 9. Folvite 1 mg daily. 10. Gabapentin 900 mg 3 times a day. 11. Mucinex 1200 mg p.o. every 12 hours p.r.n. 12. Lamictal 150 mg daily. 13. Milk of magnesia on a p.r.n. basis. 14. Melatonin 10 mg at bedtime p.r.n. 15. Multivitamin 1 tablet daily. 16. Nicotine gum b.i.d. 17. Nicotine patch 14 mg daily. 18. Protonix 40 mg daily. 19. MiraLAX 17 g daily p.r.n. 20. Thiamine 100 mg daily. 21. Trazodone 100 mg at bedtime p.r.n. LABORATORY DATA AND STUDIES PERFORMED DURING THE HOSPITAL STAY: Includes sodium of 139, potassium 4.6, chloride 104, carbon dioxide 27, BUN 12, creatinine 0.83. Liver function tests unremarkable. Troponin was 0 x3. White blood cell count of 8.6, hemoglobin of 13.8, hematocrit of 41, and platelets of 328. Urinalysis was grossly unremarkable. Brain CT obtained on 03/03/19, impression: "No evidence of intracranial mass or hemorrhage noted." The patient's EKG showed normal sinus rhythm with heart rate of 71 beats per minute, QT calculated at [address] changes. HOSPITALIZATION COURSE: Burton Greer is a 43-year-old female who is currently undergoing inpatient alcohol rehab. She is in her last of 8 weeks of her treatment. She stated that she had been doing fine until this past week where she has had 3 episodes of syncope. The patient stated that they would occur at different times of day, once it was in the morning, once it was in midday, once it was more towards the afternoon. She stated that once it was while she was brushing the teeth in the morning, when she was just getting up from bed. The second time was when she was walking. The third time she was also standing by the kitchen sink. Prior to all those episodes she did not have any prodromal symptoms. She stated that it happened suddenly and she lost consciousness for several seconds. She did not have any incontinence and those episodes that were witnessed, 2 out of the 3, the witnesses did not see any seizure-like activity. Apparently, during those episodes, the patient also was talking when those were witnessed. The patient stated that she never hit her herself or hurt herself, but she did have an "achy shoulder" on the right after the last fall. The patient was observed on telemetry monitored bed, with no arrhythmias noted. The patient's lab work was basically unremarkable. We attempted to get an echocardiogram today, but, unfortunately, we have a very limited possibility of getting an echocardiogram over the weekend and we were unable to do it. The patient was offered to stay overnight for further evaluation, but she prefers to go home. She was recommended to see a head of acquisitions for a followup echocardiogram as well as to consult for possibility of long-term cardiac monitoring. The patient stated that she likely is going to go home today from [facility] and she would like to see a head of acquisitions in her own hometown in [place], [place]. The patient was advised not to drive until she was cleared by her physician. She is advised to see her primary care provider in the next couple of days for followup. PHYSICAL EXAMINATION: At discharge, blood pressure of 106/68, heart rate of 79 and regular, respiratory rate 20, oxygen saturation 97% on room air, temperature 97.6. General: The patient is a pleasant 43-year-old female, who is no acute distress. Alert, awake, and oriented x3. HEENT: Head is atraumatic and normocephalic. Eyes: Pupils are equal, reactive to light and accommodation. Oropharynx is clear. Mucosa is moist. Neck: Supple. No JVD. No bruits bilaterally. Cardiovascular: Regular rate and rhythm. No murmur. Respiratory: Clear to auscultation bilaterally. Abdomen: Soft, nontender. Bowel sounds are present in all 4 quadrants. Extremities: There is no edema. Pulses are +2 bilaterally. No clubbing or cyanosis. On neuro evaluation, speech is clear. Cranial nerves II through XII are grossly intact. Motor strength is 5/ 5 bilaterally. On evaluation of the skin, no ecchymotic areas or rashes noted. Please also note that the patient has orthostatic blood pressures obtained and she did not have orthostatic hypotension during the hospital stay. At this point, the patient's recurrent syncopal episodes' etiology is nonconclusive. She was advised to follow up with her primary care provider and to be referred to Cardiology for long-term cardiac monitoring. CONDITION AT DISCHARGE: Stable. DISPOSITION AT DISCHARGE: To [facility] rehabilitation facility. [id number]/[facility] #: [id number] SHUKRI
== END 2019-03-03 16:45 | disposition home or self-care (01) ==
LOC: ED 13:15 → MEDTELE 17:03
PROVIDERS: ADMIT Internal Medicine; ATTEND Internal Medicine
DX: R55 Syncope and collapse (principal); K21.9 Gastro-esophageal reflux disease without esophagitis; K44.9 Diaphragmatic hernia without obstruction or gangrene; I34.1 Nonrheumatic mitral (valve) prolapse; F10.20 Alcohol dependence, uncomplicated; F32.9 Major depressive disorder, single episode, unspecified; R51 Headache; Z79.82 Long term (current) use of aspirin; Z79.899 Other long term (current) drug therapy; Z88.0 Allergy status to penicillin; Z88.8 Allergy status to other drugs, medicaments and biological substances; Z87.891 Personal history of nicotine dependence
CPT/HCPCS: 36415; 70450; 80053; 81003; 83605; 83735; 84443; 84484; 85025; 85610; 93005; 96361; 96372; 96374; 99284; A9270-GY; G0378; J1644; J1885